=== PATIENT | female | born 1975 | race Caucasian/White ===

== ENCOUNTER 2017-10-10 20:38 | Emergency (ER) | payer OTHER ==
[~2017-10-10] VITALS: Ht 162.6 cm; Wt 53.5 kg
[~2017-10-10 20:38] MED LIST: IBUPROFEN 200200 M1 PO; IRON325 PO; PRENATAL + DHA1 EAC1 PO; ROBAXIN500 MG PO; ZOFRAN ODT4 MG PO; ZYRTEC 10 MG TA10 M1 PO
[2017-10-10 21:02] VITALS: BP 142/70
== END 2017-10-10 21:04 | disposition home or self-care (01) ==
LOC: M.ERS 20:38
DX: T18.9XXA Foreign body of alimentary tract, part unspecified, initial encounter (principal); Z88.1 Allergy status to other antibiotic agents; Z88.2 Allergy status to sulfonamides; Z88.8 Allergy status to other drugs, medicaments and biological substances; X58.XXXA Exposure to other specified factors, initial encounter; Y93.89 Activity, other specified; Y92.89 Other specified places as the place of occurrence of the external cause; Y99.8 Other external cause status